=== PATIENT | male | born 2000 | race Caucasian/White ===

== ENCOUNTER 2022-02-07 11:08 | Emergency (ER) | payer OTHER ==
[2022-02-07] MEDS ORDERED: Bupivacaine 0.5% 10 ML VIAL ONE (11:25)
[2022-02-07] MEDS ORDERED: Boostrix 0.5 ML (Tdap) VIAL (>/=7 yrs of age) ONE (11:35)
== END 2022-02-07 12:43 | disposition home or self-care (01) ==
LOC: BURERS 11:08
DX: S61.223A Laceration with foreign body of left middle finger without damage to nail, initial encounter (principal); F17.210 Nicotine dependence, cigarettes, uncomplicated; Z23 Encounter for immunization; W26.8XXA Contact with other sharp object(s), not elsewhere classified, initial encounter
CPT/HCPCS: 10120; 90471; 90715; J3490